=== PATIENT | male | born 1950 | race Caucasian/White ===

== ENCOUNTER 2018-08-30 07:05 | Inpatient (IN) ==
--- NOTE | 2018-08-04 09:42 | History & Physical Report ---
Date of Service August 04, 2018 Date of Surgery: 08/30/18 Assessment & Plan (1) Tricompartment osteoarthritis of right knee: Risks and benefits of procedure discussed in detail today, patient would like to proceed with a right total knee replacement @ [facility] as scheduled. will obtain medical clearance prior to surgery as well as obtain PATs at [facility]. Will place on ASA 81mg po bid x 1 month post op, f/u 2 weeks post op for routine post-operative care and xray, sooner if having any problems. will make arrangements for HHPT at the time of discharge. History of Present Illness Chief Complaint: right knee pain Primary Care Provider: NO PCP Mr Harrell is a 68 year old male who is here for a follow up of right knee pain, presents for pre-op evaluation prior to right total knee replacement on 08-30-18. He presents with pain, crepitus and weakness on the right side. Patient is here today for pre-op visit for right TKA for 08/30/18. He states that the symptoms have been chronic non-traumatic. The symptoms occur constantly with intermittent worsening. Currently the patient states that the symptoms are moderate-severe. The pain is described as aching, discomforting and throbbing. The symptoms occur continuously. He rates his current pain as 5/10 and worst is 8/10. The symptoms are aggravated by ascending stairs, daily activities and descending stairs. In addition to right knee pain the patient is also experiencing decreased mobility, limping and stiffness. he has undergone multiple injections of both cortisone and viscosupplementation with little relief. Allergies Allergy/AdvReac Type Severity Reaction Status Date / Time No Known Allergies Allergy Verified 08/01/18 15:49 Home Medications Home Medications Medication Instructions Recorded Confirmed Type aspirin [Aspirin Low Dose] 81 mg PO QAM 08/01/18 08/01/18 History atorvastatin 20 mg PO QAM 08/01/18 08/01/18 History maifiqgh-uay-AT-lycopen-lutein 1 tab PO QAM 08/01/18 08/01/18 History [Centrum Silver Men] valsartan 160 mg PO QPM 08/01/18 08/01/18 History Past Med/Surg History Medical History High cholesterol History of kidney stones Hypertension Osteoarthritis Surgical History Hx of arthroscopic knee surgery left Hx of sinus surgery Social History Current Living Situation: Spouse Other Information That Helps Us Care for You: No Feels Safe at Home: Yes Safety Concerns: Feels Safe At This Time Smoking Status: Never smoker Hx Alcohol Use: Yes Alcohol Intake Frequency: a few times a month Hx Substance Use: No Beliefs That Will Affect Care: None Preferred Language: Frisian Communication Ability: Effective Review of Systems All systems reviewed & are unremarkable except as noted in HPI & below Constitutional: no fever, no chills and no sweats Respiratory: no cough and no dyspnea Cardiovascular: no chest pain, no dyspnea and no orthopnea Gastrointestinal: no nausea and no vomiting Integumentary: no rash and no lesions Physical Exam Vital Signs (Past 24 Hours): Ht 5ft 10 Wt 88.5kg BP: 140/82 Pulse: 82 Resp: 16 Constitutional: WD/WN, vitals as above no acute distress Respiratory: normal respiratory effort, lungs clear to auscultation no respiratory distress and no labored breathing Cardiovascular: RRR, no murmur, no edema Gastrointestinal (Abdomen): normal bowel sounds, soft, nontender, no hepatosplenomegaly Musculoskeletal: Right Knee Exam he ambulates with a limp, overall varus alignment, there is no erythema or warmth, no Atrophy or Ecchymosis, mild Effusion, Maximum tenderness Medial joint line, mild Crepitation with motion, Patella position Neutral, Rosmery's Negative, Lara's - lateral positive, Lara's - medial positive, Posterior drawer- Negative, Anterior drawer Negative, Valgus stress Negative, Varus stress Negative, no Extensor lag, Pain with Active range of motion, also passive painful ROM, Range of motion 0/5/115. No pain with active/passive ROM of ankle. Lower Extremity Strength normal. Lower Extremity Neuro-vascular is normal Results & Data Diagnostic Findings right knee x-ray: from february 2018: Right knee series showing advanced degenerative changes to the right knee, narrowing of the medial compartment and patello-femoral joint with patellar spurring noted, findings showing joint space narrowing of the medial compartment and patello-femoral joint, osteophyte formation and subchondral sclerosis noted. overall varus alignment. no acute bony pathology noted. no loose bodies.
--- NOTE | 2018-08-04 12:42 | Anesthesiology Consultation ---
Date of Service August 04, 2018 Assessment & Plan (1) Encounter for pre-operative examination: Plan: -Cleared by PCP for surgery 07/28/18. -Note sent to PCP regarding newly elevated A1c and diabetes diagnosis. Per their response, PCP started patient on metformin and the patient will be checking his sugars closely. Made patient aware not to take Metformin AM DOS. Chart Review Chart Review: Acceptable Risk for Surgery and Patient seen in Pre Admission Testing Teaching & Discussion Instructed NPO after midnight before surgery, except medications with 15 cc of water. Medication instructions provided according to the PAT guidelines. History Surgery Operation Date: 08/30/18 07:00 Proposed Procedures p Right Total Knee Arthroplasty - Sedrick Forrest DO Height/Weight Height: 5 ft 10 in Weight: 95.1 kg Allergies Allergy/AdvReac Type Severity Reaction Status Date / Time No Known Allergies Allergy Verified 08/01/18 15:49 Medications Home Medications Medication Instructions Recorded Confirmed Last Taken aspirin [Aspirin Low Dose] 81 mg PO QAM 08/01/18 08/01/18 Unknown atorvastatin 20 mg PO QAM 08/01/18 08/01/18 Unknown uhuynwcq-yir-ZT-lycopen-lutein 1 tab PO QAM 08/01/18 08/01/18 Unknown [Centrum Silver Men] valsartan 160 mg PO QPM 08/01/18 08/01/18 Unknown celecoxib 200 mg PO DAILY PRN 08/04/18 08/04/18 Unknown sildenafil [Viagra] 100 mg PO DAILY PRN 08/04/18 08/04/18 Unknown metformin 500 mg PO BID 08/09/18 08/09/18 Unknown Past Medical History Medical History Diabetes High cholesterol History of kidney stones Hypertension Osteoarthritis Past Family History Family History Unknown Hypertension Past Surgical History Surgical History Hx of arthroscopic knee surgery left Hx of sinus surgery Past Anesthesia History No Hx of Anesthesia Complications and No Family Hx of Anesthesia Complications History of PONV No Motion Sickness Screening History of Motion Sickness: No Social History Smoking Status: Never smoker Do You Dip or Chew Tobacco: No (quit 20 yrs ago) Hx Alcohol Use: Yes alcohol intake frequency: a few times a month Hx Substance Use: No Exercise / Class Metabolic Activity II 4-5 Yardwork/Stairs/Walk up hill (denies CP or SB with stairs) Review of Systems Pt denies any recent chest pain, shortness of breath, palpitations, cough, fever or URI. Physical Exam Vital Signs BP: 150/90 (pt having increased knee pain today, follows with PCP for HTN) P: 72bpm SPO2: 96% RA T: 98.3 F R: 16 ENMT Mouth: + dental restorations ( one implant); no chipped teeth and no loose teeth Thyromental Distance: > or= 3.5 Finger Breadths (3.5) Mallampati Class: II Neck normal visual inspection; neck extension not limited Respiratory normal respiratory effort Auscultation: lungs clear to auscultation bilaterally Cardiovascular Rate/Rhythm: regular rate and regular rhythm Heart Sounds: no murmur Vessels: no carotid bruit Extremities: no edema Testing Electrocardiogram Date: 08/04/18 Findings: + NSR @ (71) 1st degree AV block. Chest X-Ray Date: 08/04/18 Findings: + NAD Laboratory Results 08/04/18 12:40 08/04/18 12:40 Blood Type O Positive 08/04/18 12:40 Antibody Screen NEGATIVE 08/04/18 12:40 PT 10.6 Seconds (9.0-12.0) 08/04/18 12:40 INR 1.0 (0.9-1.1) 08/04/18 12:40 APTT 26.6 Seconds (21.0-31.0) 08/04/18 12:40 Hemoglobin A1c 7.3 % (4.5-5.6) H 08/04/18 12:40 Urine Color Yellow 08/04/18 11:40 Urine Appearance Clear (Clear) 08/04/18 11:40 Urine pH 5.0 (4.5-7.5) 08/04/18 11:40 Ur Specific [place] 1.018 (1.000-1.030) 08/04/18 11:40 Urine Protein Negative (Negative) 08/04/18 11:40 Urine Glucose (UA) Negative (Negative) 08/04/18 11:40 Urine Ketones Negative (Negative) 08/04/18 11:40 Urine Nitrite Negative (Negative) 08/04/18 11:40 Ur Leukocyte Esterase Negative (Negative) 08/04/18 11:40 08/04/18 12:40 Urine Culture - Final Urine,Clean Catch Three types of organisms present, all low counts probable skin inder. No further identifications or sensitivities to follow.
--- NOTE | 2018-08-04 12:49 | PAT Medication Instructions ---
Medication Instructions Date of Service August 04, 2018 Home Medications aspirin [Aspirin Low Dose] 81 mg PO QAM atorvastatin 20 mg PO QAM [Centrum Silver Men] 1 tab PO QAM valsartan 160 mg PO QPM celecoxib 200 mg PO DAILY PRN sildenafil [Viagra] 100 mg PO DAILY PRN ASK your surgeon for instructions celecoxib 200 mg PO DAILY PRN DO NOT take the morning of surgery aspirin [Aspirin Low Dose] 81 mg PO QAM atorvastatin 20 mg PO QAM [Centrum Silver Men] 1 tab PO QAM sildenafil [Viagra] 100 mg PO DAILY PRN Take morning of surgery With a small sip of water, OTHERWISE NOTHING TO EAT OR DRINK AFTER MIDNIGHT: aspirin [Aspirin Low Dose] 81 mg PO QAM atorvastatin 20 mg PO QAM Take evening before surgery valsartan 160 mg PO QPM sildenafil [Viagra] 100 mg PO DAILY PRN (if needed) Other Notes If you have any questions please call us at [phone] or [phone] or [phone] or [phone]
--- NOTE | 2018-08-04 13:14 | XRay Report ---
XR chest Pre-admission PA/Lat HISTORY: Preop. COMPARISON: None. FINDINGS: The lungs are clear. Cardiac silhouette is normal in size. No pleural effusions. No pneumot horax. Small nodular density at the right medial lung base likely represents a normal pulmonary vesse l. IMPRESSION: No acute process. Electronically signed by: Jamey Mata M.D. 08/04/2018 1:13 PM
[2018-08-04 13:23] LABS: Basophils # (auto) 0.04 K/uL (0-0.2); Basophils % (auto) 0.6 %; Eosinophils # (auto) 0.32 K/uL (0-0.5); Eosinophils % (auto) 4.6 %; Hemoglobin 15.5 g/dL (14.0-18.0); Immature Granulocytes # (auto) 0.03 K/uL (0.00-0.02); Immature Granulocytes % (auto) 0.4 %; Lymphocytes # (auto) 1.67 K/uL (1.2-3.4); Lymphocytes % (auto) 23.8 %; Mean Corpuscular Hgb Conc 33.7 g/dL (32-36); Mean Corpuscular Volume 88.3 fL (80-100); Mean Platelet Volume 10.4 fL (7.4-10.4); Monocytes # (auto) 0.49 K/uL (0.11-0.59); Neutrophils # (auto) 4.48 K/uL (1.4-6.5); Neutrophils % (auto) 63.6 %; Platelet Count 200 K/uL (130-400); RDW Coefficient of Variation 13.3 % (11.5-14.5); RDW Standard Deviation 43.1 fL (36.4-46.3); Red Blood Count 5.21 M/uL (4.7-6.1); White Blood Count 7.03 K/uL (4.8-10.8)
[2018-08-04 13:30] LABS: Appearance Urine Clear (Clear); Bilirubin Urine Negative (Negative); Blood Urine Negative (Negative); Color Urine Yellow; Glucose Urine UA Negative (Negative); Ketones Urine Negative (Negative); Leukocyte Esterase Urine Negative (Negative); Nitrite Urine Negative (Negative); Protein Urine Negative (Negative); Specific Gravity Urine 1.018 (1.000-1.030); Urobilinogen Urine Negative (Negative)
[2018-08-04 13:37] LABS: Estimated Average Glucose 163 mg/dl; Hemoglobin A1C 7.3 % (4.5-5.6)
[2018-08-04 13:38] LABS: Partial Thromboplastin Time 26.6 Seconds (21.0-31.0); Prothrombin Time 10.6 Seconds (9.0-12.0)
[2018-08-04 14:16] LABS: BUN Creatinine Ratio 18.3 (10-20); Calcium 9.5 mg/dl (8.5-10.1); Creatinine Clr Calc Pharmacy 75.1 ml/min; Est GFR (Non-African American) 70.8; Potassium 4.3 mmol/L (3.5-5.1)
[~2018-08-30 07:05] MED LIST: ACETAMINOPHEN 500 MG TAB PO SCH; BUPIVACAINE 0.5 % 5 MG/1 ML PF 10ML VIAL ONE; CEFAZOLIN 2000MG 2,000 MG/15 ML SYR IV SCH; CeleBREX 200 MG CAP PO SCH; FAMOTIDINE 20 MG TAB PO SCH; GABAPENTIN 300 MG PO SCH; LR 500ML BOLUS IV SCH; MISSING PHYSICIAN SIGNATURE ON ORDER SCH; ROPIVACAINE 0.5% 5 MG/ML 30 ML VIAL ONE; ROPIVACAINE 0.5% HCL/PF 150 MG, BUPIVACAINE 0.5% MPF 30 ML, EPINEPHrine 30MG/30ML (OR U... INFIL SCH; TRANEXAMIC ACID 1,000 MG **IV Intra-op IV SCH; TRANEXAMIC ACID 1,000 MG **IV Pre-op IV SCH; dexAMETHasone 4 MG TAB PO SCH
[2018-08-30] MEDS ORDERED: fentaNYL citrate 100 MCG/2 ML VIAL IV PRN (07:31)
[2018-08-30] MEDS ORDERED: ATROPINE SULFATE 0.1 MG/ML 10ML SYR IV PRN (07:31)
[2018-08-30] MEDS ORDERED: PHENYLEPHRINE 100MCG/ML 5ML SYR IV PRN (07:31)
[2018-08-30] MEDS ORDERED: ONDANSETRON INJ 2 MG/ML 2 ML VIAL IV PRN ×2 (07:31→12:47)
[2018-08-30] MEDS ORDERED: ePHEDrine sulfate 50 MG/ML AMP IV PRN (07:31)
[2018-08-30] MEDS ORDERED: HYDROmorphone INJ 1 MG/ML SYRINGE IV PRN ×2 (07:31→12:47)
[2018-08-30] MEDS ORDERED: PROPOFOL IV EMULSION 10 MG/ML 20 ML VIAL IV ONE ×2 (07:41→08:05)
[2018-08-30] MEDS ORDERED: PHENYLEPHRINE 100MCG/ML 5ML SYR ONE (07:41)
[2018-08-30] MEDS ORDERED: LIDOCAINE HCL 2% 2 ML VIAL/AMP(20MG/ML) INFIL ONE (07:41)
[2018-08-30] MEDS ORDERED: ePHEDrine sulfate 50 MG/ML SYR ONE (07:41)
[2018-08-30] MEDS ORDERED: fentaNYL citrate 100 MCG/2 ML VIAL ONE (07:42)
[2018-08-30] MEDS ORDERED: MIDAZOLAM HCL 1 MG/ML 2ML VIAL ONE ×2 (07:42)
--- NOTE | 2018-08-30 08:26 | History & Physical Bridge Note ---
Date of Service August 30, 2018 History & Physical Bridge Note I have examined the patient, reviewed the History & Physical and in the interval since the performance of the History & Physical I have noted the following changes of clinical significance: no changes noted
[2018-08-30] MEDS ORDERED: LACTATED RINGER'S 1,000 ML IV SCH (08:30)
[2018-08-30] MEDS ORDERED: POVIDONE-IODINE OP SOLN 30 ML BTL ONE (08:53)
[2018-08-30] MEDS ORDERED: BACITRACIN INJ 50,000 UNIT VIAL ONE (08:53)
--- NOTE | 2018-08-30 10:26 | Operative Report ---
Post Operative Report Pre & Post Diagnosis Operation Date: 08/30/18 09:40 Pre-Op Diagnosis: Unilateral Primary Osteoarthritis, Right Knee Post-Op Diagnosis: Unilateral Primary Osteoarthritis, Right Knee Procedure Operation Date: 08/30/18 09:40 Actual Procedures p Right Total Knee Arthroplasty(Right) utilizing [facility] 2 patient matched total knee arthroplasty size 7 femur 7 tibia 12 polyethylene 35 oval patella- Sedrick Forrest DO Surgeon Sedrick Forrest DO Anode Worker Josiah FLYNN Estimated Blood Loss 5 Findings Consistent with Post-Op Diagnosis Patient presents with severe end-stage DJD varus alignment subchondral sclerosis marginal osteophytes cystic changes eburnated [id number] with with a 7 degree varus alignment of the right knee is been no response to conservative management the above intraoperative findings noted times surgery Specimens Bone and cartilage Drains Medium bore he Complications none Disposition Accompanied Patient To Recovery: No Disposition: Recovery Room Indications Patient presents with severe end-stage DJD [id number] changes varus alignment with subchondral sclerosis eburnated bone marginal osteophytes cystic changes no response to conservative management patient is failed times a conservative management physical therapy anti-inflammatories relative rest activity modification bracing as well as corticosteroid injection patient presents for right total knee arthroplasty above findings were noted Description of Procedure After proper prepping and draping of the Right lower extremity anterior midline incision was made over the region of the extensor extensor mechanism after meticulous hemostasis was obtained and maintained in subcutaneous tissues a medial parapatellar incision was made The patella was subluxed lateralward the medial lateral gutter were cleaned from any hypertrophic synovitis and scar tissue of the distal femoral block was placed and the distal femoral osteotomy cut was made subsequently the chamfers anterior and posterior osteotomy cuts were made utilizing the 4-in-1 block the tibia was subsequently subluxed anteriorward medial and ateral meniscal remnants were excised in their entirety remnants of the anterior and posterior cruciate ligaments were excised in their entirety excellent exposure of the proximal tibia was obtained the tibial osteotomy guide was placed on the proximal tibial osteotomy cut was made once again the knee was irrigated with copious amounts of sterile saline solution the patella was subsequently everted lateralward thickened scar tissue around the patella was removed the patella was subsequently cut utilizing a freehand technique and was drilled prepared for final preparation and placement of patella socially flexion-extension gaps were checked and the equal and symmetric trials were placed to the appropriate femoral and tibial trials with poly-spacer being placed for equal flexion and extension gaps and full range of motion including extension to 0 and flexion to 140 the trial components after having been taken to recovery range of motion was subsequently removed meticulous hemostasis was obtained and maintained subsequently a knee block injection of joint cocktail including ropivacaine 0.5% 150 mg. Bupivacaine 0.5% epinephrine 1-200,030 mL's toradol 30 mg dexamethasone 4 mg ketamine 10 mg clonidine 100 micrograms normal saline solution 30 mg was infiltrated into the soft tissues of the posterior knee medial lateral gutters and periosteal synovium special attention was paid to protect neurovascular structures at all times subsequently trial components having been removed the knee was irrigated with sterile saline solution. debris was removed the proximal tibia was subsequently prepared and was made ready for the placement of the tibial component tibial component was also cemented and tamped into position the femoral component was subsequently placed and cemented in the position the patellar component was subsequently cemented in position because hemostasis once again obtained and maintained wound having been thoroughly irrigated with debridement and debridement lavage was performed as well as a medial parapatellar incision closed with #1 Vicryl in interrupted fashion subcutaneous was closed with #2 Vicryl skin was closed with skin clips. PA-C was necessary for prepping and drapping as well as wound closure of deep fascia Sub cutaneous tissue and skin and was necessary for the case. A sterile compressive dressing was placed patient was taken to recovery in stable condition of report dictated by Lon I attest to the content of the Intraoperative Record and any orders documented therein. Any exceptions are noted below. I attest to the content of the Intraoperative Record and any orders documented therein. Any exceptions are noted below.
--- NOTE | 2018-08-30 11:50 | XRay Report ---
XR knee RT 2V routine HISTORY: 68 years-old Male Surgical Post Op right knee total joint arthroplasty COMPARISON: None available TECHNIQUE: 2 views of the right knee FINDINGS: Right knee total joint arthroplasty with patellar resurfacing. Alignment is satisfactory without acut e fracture or retained foreign body. Expected postsurgical soft tissue swelling and deep tissue air w ith surgical drainage catheter. IMPRESSION: Right knee total joint arthroplasty and patella resurfacing with satisfactory alignment. The above report was generated using voice recognition software. It may contain grammatical, syntax o r spelling errors. Electronically signed by: Jose L José M.D. 08/30/2018 11:49 AM
--- NOTE | 2018-08-30 12:18 | Anesthesiology Progress Note ---
Date of Service August 30, 2018 Anesthesia Post Procedure Vital Signs Vital Signs: Temp Pulse Pulse Resp BP Pulse Ox 08/30/18 12:08 36.6 C 71 18 116/70 94 08/30/18 11:55 36.6 C 83 18 122/72 95 08/30/18 11:45 78 15 119/74 94 08/30/18 11:35 82 20 110/69 95 08/30/18 11:25 84 16 106/61 94 08/30/18 11:15 82 17 113/55 L 99 08/30/18 11:08 36.1 C L 83 16 97/53 L 99 08/30/18 07:49 36.9 C 82 20 148/89 H 97 Notes Mental Status: alert / awake / arousable Patient Amnestic to Procedure: Yes Nausea / Vomiting: adequately controlled Pain: adequately controlled Airway Patency, RR, SpO2: stable & adequate BP & HR: stable & adequate Neuraxial Anesthesia: was administered and sensory block is resolving Anesthetic Complications: no major complications apparent
[2018-08-30] MEDS ORDERED: MAGNESIUM HYDROXIDE SUSP 30 ML UDC PO PRN (12:47)
[2018-08-30] MEDS ORDERED: METOCLOPRAMIDE HCL INJ 5 MG/ML 2 ML VIAL IV PRN (12:47)
[2018-08-30] MEDS ORDERED: BISACODYL 10 MG SUPP PR PRN (12:47)
[2018-08-30] MEDS ORDERED: NALOXONE HCL 0.4 MG/1 ML VIAL/CARP IV PRN (12:47)
[2018-08-30] MEDS: KETOROLAC TROMETHAMINE 15 MG/ML VIAL IV SCH ×2 (14:07→19:49)
[2018-08-30] MEDS: ACETAMINOPHEN 500 MG TAB PO SCH ×2 (14:07→21:10)
[2018-08-30] MEDS: SODIUM CHLORIDE 0.9% 1000ML 1,000 ML IV SCH (14:28)
[2018-08-30] MEDS: CEFAZOLIN 2000MG 2,000 MG/15 ML SYR IV SCH (17:15)
[2018-08-30] MEDS: VALSARTAN 80 MG TAB PO SCH (21:10)
[2018-08-30] MEDS: ASPIRIN 81 MG ECTAB PO SCH (21:10)
[2018-08-30] MEDS: SENNA 8.6 MG TAB PO SCH (21:10)
[2018-08-30] MEDS: DOCUSATE SODIUM 100 MG CAP PO SCH (21:10)
[2018-08-31] MEDS: SODIUM CHLORIDE 0.9% 1000ML 1,000 ML IV SCH (00:18)
[2018-08-31] MEDS: KETOROLAC TROMETHAMINE 15 MG/ML VIAL IV SCH ×2 (00:46→09:14)
[2018-08-31] MEDS: CEFAZOLIN 2000MG 2,000 MG/15 ML SYR IV SCH (00:46)
[2018-08-31] MEDS: OXYCODONE HCL IR 5 MG TAB (IMMEDIATE RELEASE) PO PRN ×2 (05:08→12:55)
[2018-08-31] MEDS: ACETAMINOPHEN 500 MG TAB PO SCH ×3 (05:08→21:31)
[2018-08-31 07:03] LABS: Hematocrit (blood only) 39.3 % (42-52); Hemoglobin 13.5 g/dL (14.0-18.0); Mean Corpuscular Hgb Conc 34.4 g/dL (32-36); Mean Corpuscular Volume 86.4 fL (80-100); Mean Platelet Volume 9.5 fL (7.4-10.4); Platelet Count 187 K/uL (130-400); RDW Standard Deviation 41.2 fL (36.4-46.3); Red Blood Count 4.55 M/uL (4.7-6.1); White Blood Count 13.12 K/uL (4.8-10.8)
[2018-08-31 07:30] LABS: BUN Creatinine Ratio 18.9 (10-20); Calcium 8.3 mg/dl (8.5-10.1); Creatinine Clr Calc Pharmacy 67.4 ml/min; Est GFR (Non-African American) 62.2; Potassium 4.6 mmol/L (3.5-5.1)
--- NOTE | 2018-08-31 07:52 | Anesthesiology Progress Note ---
Date of Service August 31, 2018 Anesthesia Post Procedure Vital Signs Vital Signs: Temp Pulse Pulse Resp BP BP Pulse Ox 08/31/18 07:36 36.5 C 66 16 132/73 95 08/31/18 04:00 36.5 C 77 16 135/74 95 08/30/18 23:20 36.6 C 78 16 117/71 95 08/30/18 21:09 80 115/67 08/30/18 19:54 36.7 C 90 18 138/78 95 08/30/18 15:43 36.5 C 86 18 135/73 95 08/30/18 14:36 36.4 C L 85 16 142/75 H 95 08/30/18 13:35 36.7 C 88 16 125/73 95 08/30/18 12:51 79 16 119/78 95 08/30/18 12:30 36.6 C 76 16 113/68 94 08/30/18 12:08 36.6 C 71 18 116/70 94 08/30/18 11:55 36.6 C 83 18 122/72 95 08/30/18 11:45 78 15 119/74 94 08/30/18 11:35 82 20 110/69 95 08/30/18 11:25 84 16 106/61 94 08/30/18 11:15 82 17 113/55 L 99 08/30/18 11:08 36.1 C L 83 16 97/53 L 99 Pain Intensity Right Knee: Pain Intensity: 1 Notes Mental Status: alert / awake / arousable and participated in evaluation Patient Amnestic to Procedure: Yes Nausea / Vomiting: adequately controlled Pain: adequately controlled Airway Patency, RR, SpO2: stable & adequate BP & HR: stable & adequate Hydration State: stable & adequate Neuraxial Anesthesia: sensory block resolved Anesthetic Complications: Pt Satisfied with anesthetic care
[2018-08-31] MEDS ORDERED: PHARMACY GLYCEMIC MGMT CONSULT PRN (08:07)
--- NOTE | 2018-08-31 08:43 | Orthopedic Progress Note ---
Date of Service August 31, 2018 Assessment & Plan (1) History of total right knee replacement: POD #1 s/p Right TKA PT/OT dvt proph with [facility]/SCD/ASA plan on d/c home with HHPT when stable, likely Tuesday DM- pharmacy glycemic consult Subjective POD #1 s/p Right TKA denies CP/SOB denies Fever/chills denies LH/dizzy Physical Exam Vital Signs (Past 24 Hours): Last Vital Signs Temp 36.5 C 08/31/18 07:36 Pulse 66 08/31/18 07:36 Resp 16 08/31/18 07:36 BP 132/73 08/31/18 07:36 Pulse Ox 95 08/31/18 07:36 Constitutional: WD/WN, vitals as above no acute distress Musculoskeletal: right knee: NVDI, calf SNT, negative megan sign. DP palpable, able to wiggle toes/ankle movement without difficulty. dressing clean dry and intact. Vital Signs Temp 36.5 C 08/31/18 07:36 Pulse 66 08/31/18 07:36 Resp 16 08/31/18 07:36 BP 132/73 08/31/18 07:36 Pulse Ox 95 08/31/18 07:36 Intake & Output 08/30/18 08/31/18 08/31/18 18:59 06:59 18:59 Intake Total 2770.0 / 4453.333 1683.333 / 4453.33 3 Output Total 175 / 1950 1775 / 1950 Balance 2595.0 / 2503.333 -91.667 / 2503.333 Weight 95.1 kg Intake: IV 1020.0 / 2002.333 983.333 / 2003.333 Lr 1,000 ml @ 15 mls/hr IV . 800.0 / 800.0 Q24H SHREYA Rx#:[id number] Nss 1000ML 1,0 00 ml @ 100 mls/ 983.333 / 983.333 hr IV .Q10H SC H Rx#:[id number] Cyklokapron 1, 000 mg In Sodium 220 / 220 Chloride 100 m l @ 660 mls/hr IV 0630 SHREYA Rx#:[id number] IV Perioperative 900 / 900 Oral 850 / 1550 700 / 1550 Output: Urine 150 / 1625 1475 / 1625 Estimated Blood Loss 5 / 5 Drain Output 20 / 320 300 / 320 Right Knee Hem ovac 300 / 320 Results & Data Laboratory Results Laboratory Results WBC 13.12 K/uL (4.8-10.8) H 08/31/18 06:40 RBC 4.55 M/uL (4.7-6.1) L 08/31/18 06:40 Hgb 13.5 g/dL (14.0-18.0) L 08/31/18 06:40 Hct 39.3 % (42-52) L 08/31/18 06:40 MCV 86.4 fL (80-100) 08/31/18 06:40 MCH 29.7 pg (25-34) 08/31/18 06:40 MCHC 34.4 g/dL (32-36) 08/31/18 06:40 RDW Std Deviation 41.2 fL (36.4-46.3) 08/31/18 06:40 RDW Coeff of Arthur 13.0 % (11.5-14.5) 08/31/18 06:40 Plt Count 187 K/uL (130-400) 08/31/18 06:40 MPV 9.5 fL (7.4-10.4) 08/31/18 06:40 Immature Gran % (Auto) 0.4 % 08/04/18 12:40 Neut % (Auto) 63.6 % 08/04/18 12:40 Lymph % (Auto) 23.8 % 08/04/18 12:40 [place] % (Auto) 7.0 % 08/04/18 12:40 Eos % (Auto) 4.6 % 08/04/18 12:40 Baso % (Auto) 0.6 % 08/04/18 12:40 Immature Gran # (Auto) 0.03 K/uL (0.00-0.02) H 08/04/18 12:40 Neut # (Auto) 4.48 K/uL (1.4-6.5) 08/04/18 12:40 Lymph # (Auto) 1.67 K/uL (1.2-3.4) 08/04/18 12:40 [place] # (Auto) 0.49 K/uL (0.11-0.59) 08/04/18 12:40 Eos # (Auto) 0.32 K/uL (0-0.5) 08/04/18 12:40 Baso # (Auto) 0.04 K/uL (0-0.2) 08/04/18 12:40 PT 10.6 Seconds (9.0-12.0) 08/04/18 12:40 INR 1.0 (0.9-1.1) 08/04/18 12:40 APTT 26.6 Seconds (21.0-31.0) 08/04/18 12:40 PTT Ratio 1.0 08/04/18 12:40 Sodium 140 mmol/L (136-145) 08/31/18 06:40 Potassium 4.6 mmol/L (3.5-5.1) 08/31/18 06:40 Chloride 109 mmol/L (98-107) H 08/31/18 06:40 Carbon Dioxide 26 mmol/L (21-32) 08/31/18 06:40 Anion Gap 4.0 (3-11) 08/31/18 06:40 BUN 22 mg/dl (7-18) H 08/31/18 06:40 Creatinine 1.18 mg/dl (0.6-1.4) 08/31/18 06:40 Est Cr Clr Drug Dosing 67.4 ml/min 08/31/18 06:40 Est GFR ( Amer) 72.0 08/31/18 06:40 Est GFR (Non-Af Amer) 62.2 08/31/18 06:40 BUN/Creatinine Ratio 18.9 (10-20) 08/31/18 06:40 Glucose 122 mg/dl (70-99) H 08/31/18 06:40 POC Glucose 113 (70-99) H 08/31/18 08:05 Estimat Average Glucose 163 mg/dl 08/04/18 12:40 Hemoglobin A1c 7.3 % (4.5-5.6) H 08/04/18 12:40 Calcium 8.3 mg/dl (8.5-10.1) L 08/31/18 06:40 Albumin 4.0 gm/dl (3.4-5.0) 08/04/18 12:40 Urine Color Yellow 08/04/18 11:40 Urine Appearance Clear (Clear) 08/04/18 11:40 Urine pH 5.0 (4.5-7.5) 08/04/18 11:40 Ur Specific [place] 1.018 (1.000-1.030) 08/04/18 11:40 Urine Protein Negative (Negative) 08/04/18 11:40 Urine Glucose (UA) Negative (Negative) 08/04/18 11:40 Urine Ketones Negative (Negative) 08/04/18 11:40 Urine Blood Negative (Negative) 08/04/18 11:40 Urine Nitrite Negative (Negative) 08/04/18 11:40 Urine Bilirubin Negative (Negative) 08/04/18 11:40 Urine Urobilinogen Negative (Negative) 08/04/18 11:40 Ur Leukocyte Esterase Negative (Negative) 08/04/18 11:40 Blood Type O Positive 08/04/18 12:40 Antibody Screen NEGATIVE 08/04/18 12:40 Diagnostic Findings XR knee RT 2V routine HISTORY: 68 years-old Male Surgical Post Op right knee total joint arthroplasty COMPARISON: None available TECHNIQUE: 2 views of the right knee FINDINGS: Right knee total joint arthroplasty with patellar resurfacing. Alignment is satisfactory without acute fracture or retained foreign body. Expected postsurgical soft tissue swelling and deep tissue air with surgical drainage catheter. IMPRESSION: Right knee total joint arthroplasty and patella resurfacing with satisfactory alignment.
[2018-08-31] MEDS: ATORVASTATIN 20 MG TAB PO SCH (09:15)
[2018-08-31] MEDS: ASPIRIN 81 MG ECTAB PO SCH ×2 (09:16→21:31)
[2018-08-31] MEDS: DOCUSATE SODIUM 100 MG CAP PO SCH ×2 (09:16→21:31)
[2018-08-31] MEDS: MULTIVITAMIN TAB PO SCH (09:16)
[2018-08-31] MEDS: INSULIN ASPART 100 UNITS/ML 3 ML PEN SC SCH ×3 (12:42→22:41)
--- NOTE | 2018-08-31 15:46 | Pharmacy Report ---
Glycemic Control Consultation - Date of Service August 31, 2018 - Scope Scope: Glycemic Pharmacist consulted by Josiah Echeverria PA-C on 08/31 for glycemic control and to write orders per [facility] inpatient glycemic control protocol - Objective Weight: 95.1 kg Accuchecks BSG (last 24hrs): 08/31/18 08/31/18 08/31/18 06:40 08:05 11:55 Glucose 122 H POC Glucose 113 H 93 Laboratory Data (last 24hrs): 08/31/18 06:40 Potassium 4.6 Carbon Dioxide 26 Anion Gap 4.0 Creatinine 1.18 Est Cr Clr Drug Dosing 67.4 HbA1c: Hemoglobin A1c 7.3 % (4.5-5.6) H 08/04/18 12:40 - Recent Pertinent Medications Outpatient Anti-diabetic Regimen: * Metformin 500 mg BIDM * A1c = 7.3 % 08/04/18 The patient is currently receiving: * Correctional Insulin: Novolog Correction per scale ACHS Goal Range: Low 110 mg/dL - High 140 mg/dL Correction Factor: 30 mg/dL/unit Risk Factors for Insulin Resistance: * Steroids: Dexamethasone 8 mg PO x 1 on 08/30 * Recent Surgery: Post op day #1 * Diet: T2DM - Assessment & Plan Assessment & Plan: ASSESSMENT: * 68 yo male with recent right TKA (POD #1), received dexamethasone 8 mg PO x 1 yesterday * Patient's BSGs have ranged 109-133 over past 24 hours without insulin use * Will give correctional scale only for now and add lantus/prandial should BSGs become elevated PLAN FOR INPATIENT GLYCEMIC CONTROL: * Holding outpatient oral diabetes medications * Bolus insulin * NovoLog per scale ACHS or Q6hrs while NPO * Goal Range: Low 110 mg/dL - High 140 mg/dL * Correction Factor: 30 mg/dL/unit * Please note that the plan above was derived based on current level of insulin resistance and hospital stress. These recommendations are appropriate for inpatient admission only. Plan of care upon discharge will need to be reassessed to avoid potential outpatient hypo/hyperglycemia. Thank you.
[2018-08-31] MEDS: CeleBREX 200 MG CAP PO SCH (21:29)
[2018-08-31] MEDS: SENNA 8.6 MG TAB PO SCH (21:30)
[2018-08-31] MEDS: VALSARTAN 80 MG TAB PO SCH (21:30)
[2018-09-01] MEDS: ACETAMINOPHEN 500 MG TAB PO SCH (05:15)
[2018-09-01] MEDS: ATORVASTATIN 20 MG TAB PO SCH (07:24)
[2018-09-01] MEDS: MULTIVITAMIN TAB PO SCH (07:24)
[2018-09-01] MEDS: OXYCODONE HCL IR 5 MG TAB (IMMEDIATE RELEASE) PO PRN ×2 (07:24)
[2018-09-01] MEDS: DOCUSATE SODIUM 100 MG CAP PO SCH (07:24)
[2018-09-01] MEDS: CeleBREX 200 MG CAP PO SCH (07:24)
[2018-09-01] MEDS: ASPIRIN 81 MG ECTAB PO SCH (07:24)
--- NOTE | 2018-09-01 07:24 | Orthopedic Progress Note ---
Date of Service September 01, 2018 Assessment & Plan (1) History of total right knee replacement: POD #2 s/p Right TKA PT/OT dvt proph with YVONNE/SCD/ASA plan on d/c home with HHPT after PT today DM- pharmacy glycemic consult Subjective POD #2 s/p Right TKA denies CP/SOB denies Fever/chills denies LH/dizzy Physical Exam Vital Signs (Past 24 Hours): Last Vital Signs Temp 36.8 C 09/01/18 07:11 Pulse 59 L 09/01/18 07:11 Resp 20 09/01/18 07:11 BP 135/73 09/01/18 07:11 Pulse Ox 95 09/01/18 07:11 Constitutional: WD/WN, vitals as above no acute distress Musculoskeletal: Right Knee: NVDI, calf SNT, negative megan sign. DP palpable, able to wiggle toes/ankle movement without difficulty. LATONIA dressing clean dry and intact.
[2018-09-01] MEDS: INSULIN ASPART 100 UNITS/ML 3 ML PEN SC SCH (07:25)
--- NOTE | 2018-09-01 07:30 | Discharge Summary ---
Date of Service Date of Discharge: September 01, 2018 Date of Admission: 08/30/18 Admission HPI Per Admitting Provider Mr Harrell is a 68 year old male who is here for a follow up of right knee pain, presents for pre-op evaluation prior to right total knee replacement on 08-30-18. He presents with pain, crepitus and weakness on the right side. Patient is here today for pre-op visit for right TKA for 08/30/18. He states that the symptoms have been chronic non-traumatic. The symptoms occur constantly with intermittent worsening. Currently the patient states that the symptoms are moderate-severe. The pain is described as aching, discomforting and throbbing. The symptoms occur continuously. He rates his current pain as 5/10 and worst is 8/10. The symptoms are aggravated by ascending stairs, daily activities and descending stairs. In addition to right knee pain the patient is also experiencing decreased mobility, limping and stiffness. he has undergone multiple injections of both cortisone and viscosupplementation with little relief. Principal Diagnosis right knee osteoarthritis Discharge Exam Constitutional WD/WN, vitals as above + well hydrated; no acute distress Musculoskeletal right knee: NVDI, calf SNT, negative megan sign. DP palpable, able to wiggle toes/ankle movement without difficulty. LATONIA dressing clean dry and intact. expected post-operative bruising noted. Discharge Data Allergies Allergy/AdvReac Type Severity Reaction Status Date / Time No Known Allergies Allergy Verified 08/30/18 07:43 Consultations 08/30/18 12:47 Consult Case Management - Discharge Planning Routine Procedures Performed Operation Date: 08/30/18 09:40 Actual Procedures p Right Total Knee Arthroplasty(Right) - Sedrick Forrest DO Ordered Studies 08/30/18 05:00 US - OR guided needle placemen Routine Hospital Course (1) History of total right knee replacement: POD #2 s/p Right TKA PT/OT dvt proph with YVONNE/SCD/ASA plan on d/c home with HHPT after PT today DM- pharmacy glycemic consult Patient was a same day admission after undergoing a successful right TKA. he tolerated the procedure well. Post-operatively, his activity was progressed and well tolerated. Please refer to daily progress notes and PT notes for complete details. After exam on 09/01/18, patient felt to be stable for discharge home w ith HHPT. Patient will f/u in the office in 2 weeks for further evaluation including x-rays and incision check, sooner if having any issues or concerns. Below are pertinent labs/studies during their hospital stay: Laboratory Results WBC 13.12 K/uL (4.8-10.8) H 08/31/18 06:40 RBC 4.55 M/uL (4.7-6.1) L 08/31/18 06:40 Hgb 13.5 g/dL (14.0-18.0) L 08/31/18 06:40 Hct 39.3 % (42-52) L 08/31/18 06:40 MCV 86.4 fL (80-100) 08/31/18 06:40 MCH 29.7 pg (25-34) 08/31/18 06:40 MCHC 34.4 g/dL (32-36) 08/31/18 06:40 RDW Std Deviation 41.2 fL (36.4-46.3) 08/31/18 06:40 RDW Coeff of Arthur 13.0 % (11.5-14.5) 08/31/18 06:40 Plt Count 187 K/uL (130-400) 08/31/18 06:40 MPV 9.5 fL (7.4-10.4) 08/31/18 06:40 Immature Gran % (Auto) 0.4 % 08/04/18 12:40 Neut % (Auto) 63.6 % 08/04/18 12:40 Lymph % (Auto) 23.8 % 08/04/18 12:40 Sequoyah % (Auto) 7.0 % 08/04/18 12:40 Eos % (Auto) 4.6 % 08/04/18 12:40 Baso % (Auto) 0.6 % 08/04/18 12:40 Immature Gran # (Auto) 0.03 K/uL (0.00-0.02) H 08/04/18 12:40 Neut # (Auto) 4.48 K/uL (1.4-6.5) 08/04/18 12:40 Lymph # (Auto) 1.67 K/uL (1.2-3.4) 08/04/18 12:40 Sequoyah # (Auto) 0.49 K/uL (0.11-0.59) 08/04/18 12:40 Eos # (Auto) 0.32 K/uL (0-0.5) 08/04/18 12:40 Baso # (Auto) 0.04 K/uL (0-0.2) 08/04/18 12:40 PT 10.6 Seconds (9.0-12.0) 08/04/18 12:40 INR 1.0 (0.9-1.1) 08/04/18 12:40 APTT 26.6 Seconds (21.0-31.0) 08/04/18 12:40 PTT Ratio 1.0 08/04/18 12:40 Sodium 140 mmol/L (136-145) 08/31/18 06:40 Potassium 4.6 mmol/L (3.5-5.1) 08/31/18 06:40 Chloride 109 mmol/L (98-107) H 08/31/18 06:40 Carbon Dioxide 26 mmol/L (21-32) 08/31/18 06:40 Anion Gap 4.0 (3-11) 08/31/18 06:40 BUN 22 mg/dl (7-18) H 08/31/18 06:40 Creatinine 1.18 mg/dl (0.6-1.4) 08/31/18 06:40 Est Cr Clr Drug Dosing 67.4 ml/min 08/31/18 06:40 Est GFR ( Amer) 72.0 08/31/18 06:40 Est GFR (Non-Af Amer) 62.2 08/31/18 06:40 BUN/Creatinine Ratio 18.9 (10-20) 08/31/18 06:40 Glucose 122 mg/dl (70-99) H 08/31/18 06:40 POC Glucose 111 (70-99) H 09/01/18 06:25 Estimat Average Glucose 163 mg/dl 08/04/18 12:40 Hemoglobin A1c 7.3 % (4.5-5.6) H 08/04/18 12:40 Calcium 8.3 mg/dl (8.5-10.1) L 08/31/18 06:40 Albumin 4.0 gm/dl (3.4-5.0) 08/04/18 12:40 Urine Color Yellow 08/04/18 11:40 Urine Appearance Clear (Clear) 08/04/18 11:40 Urine pH 5.0 (4.5-7.5) 08/04/18 11:40 Ur Specific Currie 1.018 (1.000-1.030) 08/04/18 11:40 Urine Protein Negative (Negative) 08/04/18 11:40 Urine Glucose (UA) Negative (Negative) 08/04/18 11:40 Urine Ketones Negative (Negative) 08/04/18 11:40 Urine Blood Negative (Negative) 08/04/18 11:40 Urine Nitrite Negative (Negative) 08/04/18 11:40 Urine Bilirubin Negative (Negative) 08/04/18 11:40 Urine Urobilinogen Negative (Negative) 08/04/18 11:40 Ur Leukocyte Esterase Negative (Negative) 08/04/18 11:40 Blood Type O Positive 08/04/18 12:40 Antibody Screen NEGATIVE 08/04/18 12:40 Total Time Total Time Spent Total Time Spent (In Minutes): 20 Total Time Includes: Examination of the Patient, Discharge Planning and Medication Reconciliation Discharge Plan Discharge Items Patient Disposition: Home - Home Health Services Reason For Visit: Unilateral Primary Osteoarthritis, Right Knee Discharge Diagnosis: right total knee replacement Condition: Good Discharge Goals: Decrease discomfort, Improve function and Increase independence Activity: Per 'Additional Instructions' section Lifting: Wait until after follow-up appointment Driving/Machine Use Comment: no driving until cleared by your physician Weightbearing: Right weightbearing Weightbearing Comment: WBAT with walker Non-emergency contact: Primary Care Provider and Surgeon Call non-emergency contact if: you have any medication questions, your temperature is above 101, your wound has increased redness, your wound has increased drainage and your wound pain has increased Follow-up/Referrals: PCP,NO [Primary Care Provider] - Diet: Carb Consistent or DM2 Addtl Provider Instructions: ACTIVITY RECOMMENDATIONS: SELF CARE INSTRUCTIONS AFTER TOTAL KNEE REPLACEMENT A. You may need to continue a physical therapy program after discharge from the hospital. There are several options available to you. Your doctor will assist you in selecting the best one for you. 1. An out-patient facility 2 to 3 times a week for therapy or home therapy. 2. Continue working on all exercises taught to you in the hospital. Your goals should be to increase bending of your knee to 90 degrees and beyond and to fully straighten your knee. B. You may progress at your own pace from walking with a walker or crutches to a cane; then to no assistive devices. C. Make walking a part of your daily routine. Be up as much as comfortable with rest periods throughout the day. Rest with leg elevation is very important. Use the ice wrap frequently for the first 3-4 weeks. D. There are no restrictions on activities. You may ride in a car, shop, participate in client relations specialist and all social activities. E. Wear the long elastic stockings (YVONNE hose) 20 hours a day for 2 weeks after surgery. They can be removed several times a day for laundering and for a bath. F. You may shower, no tub baths until cleared by your doctor. SPECIAL CARE INSTRUCTIONS: VERY IMPORTANT TO READ AND REVIEW A. There are a few signs you need to watch for after you are home. Call [facility] if you notice any of the followin. Increased severe knee pain. Some pain is expected especially when you exercise. 2. Increased swelling in your leg or knee; pain or swelling of the calf muscle in either lower leg. 3. Any fluid drainage from the incision. 4. Shortness of breath or chest pain. B. Please call [facility] at if you have any concerns or questions about your operation or recovery. The doctor or his nurse will return your call promptly. C. You must take antibiotics before dental work, bladder, bowel or other surgery. Your doctor will provide you with a permanent care to carry describing this precaution. IMPORTANT: * REMEMBER TO TAKE ASPIRIN, 81 MG, TWICE DAILY FOR 4 WEEKS UNLESS OTHERWISE DIRECTED. THIS IS YOUR BLOOD THINNER. * HIGH RISK PATIENTS MAY BE PRESCRIBED A STRONGER BLOOD THINNER. THIS WILL BE PROVIDED AT DISCHARGE. * CALL IF INCREASED PAIN, REDNESS, DRAINAGE OR FEVER GREATER THAT 101. * WEAR YVONNE HOSE 20 HOURS PER DAY FOR 2 WEEKS. * LATONIA Dressing- This is a large suction dressing covering your incision. This will help pull any excess drainage from the wound and allow your incision to heal properly. You may shower with this if you can keep the unit outside of the shower. If any bleeding or leakage is noted please call your doctor's office. This will remain on your incision for 7 days and then should be removed. This can be done yourself or by the home nursing staff if applicable. The entire unit is disposable once removed. Once removed, keep incision clean and dry. If redness or drainage is noted, please call your surgeon. DERMABOND Prineo- This is a mesh tape dressing that is covered with glue. It should remain in place until the incision is properly healed, usually 10-14 days. This dressing is designed to naturally slough off. You may trim the excess mesh tape as it peels off. Incision may be briefly wet in a shower. Dry immediately by blotting with a clean, dry towel. Do not bath or swim until instructed by your doctor. Do not scratch, rub, or pick at the dressing. Do not apply any topical ointments or lotions until dressing is completely removed and/or instructed by your doctor. There may be a small piece of suture material at one end of your incision. Do not pull or trim this. If it is bothersome or catching on clothing, you may cover it with a band-aid. FOLLOW UP VISIT: If appointment is not already scheduled: Please call [facility] to make a follow-up appointment for 2 weeks after your surgery at . Prescriptions: New celecoxib [Celebrex] 200 mg Capsule 200 mg PO BID 30 Days Qty: 60 RF: 0 aspirin [Ecotrin Low Strength] 81 mg Tablet,Delayed Release (Dr/Ec) 81 mg PO BID 30 Days Qty: 60 RF: 0 acetaminophen [Pain Reliever] 500 mg Tablet 1,000 mg PO Q8 14 Days Qty: 84 RF: 0 oxycodone 5 mg Tablet 5 - 10 mg PO Q6H PRN (Reason: pain) Qty: 30 RF: 0 docusate sodium 100 mg Capsule 100 mg PO BID 10 Days Qty: 20 RF: 0 cefadroxil 500 mg capsule 500 mg PO BID 10 Days Qty: 20 RF: 0 Continued atorvastatin 20 mg Tablet 20 mg PO QAM RF: 0 valsartan 160 mg Tablet 160 mg PO QPM RF: 0 Centrum Silver Men 300-600-300 mcg Tablet 1 tab PO QAM RF: 0 sildenafil [Viagra] 100 mg Tablet 100 mg PO DAILY PRN (Reason: Erectile Dysfunction) RF: 0 metformin 500 mg Tablet 500 mg PO BID RF: 0 Discontinued aspirin [Aspirin Low Dose] 81 mg Tablet,Delayed Release (Dr/Ec) 81 mg PO QAM RF: 0 celecoxib 200 mg Capsule 200 mg PO DAILY PRN (Reason: Pain) RF: 0 Stand-Alone Forms: [facility] Discharge Orders: Discharge Order (Routine); Ordered 09/01/18 Ordered By: Josiah Echeverria Admission Data Admit Date/Time: 08/30/18 11:13 Attending Provider: Sedrick Forrest Admit Provider: Sedrick Forrest Primary Care Provider: PCPDESHAUN Service: Surgical Services Other Interventions: Discharge Summary Assessment (RN) Last Done: 09/01/18 07:11 Pending Studies at Discharge: No
== END 2018-09-01 11:42 | disposition home health service (06) | DRG 470 ==
LOC: ASU 07:05 → 3W 11:13
DX: E11.9 Type 2 diabetes mellitus without complications; Z87.442 Personal history of urinary calculi; M17.11 Unilateral primary osteoarthritis, right knee; I10 Essential (primary) hypertension; E78.5 Hyperlipidemia, unspecified